=== PATIENT | male | born 1985 | race American Indian/Alaskan Native ===

== ENCOUNTER 2018-03-21 21:25 | Emergency (ER) | payer OTHER ==
[2018-03-21] MEDS ORDERED: KEPPRA 1,000 MG/NS 0.75% 100ML 1,000 MG/100 ML BAG IV ONE (22:02)
--- NOTE | 2018-03-21 22:23 | Emergency Department Report ---
ED Seizure HPI - General Chief Complaint: Seizure Stated Complaint: SEIZURE Time Seen by Provider: 03/21/18 22:04 Source: EMS Mode of arrival: Stretcher Limitations: Other - History of Present Illness Initial Comments: Patient is a 32 years old male with history of seizure he is on Keppra 750 mg twice a day. Patient presented to the ER after single episode of tonic-clonic seizure. Patient fell and hit his occipital part of his head and sustained a 2 cm laceration, bleeding controlled. Patient stated that he is compliant with his medication. Patient is complaining of headache but denied any weakness, numbness or tingling sensation. MD Complaint: seizure -: Sudden Description of Episode: loss of consciousness, tonic-clonic movement, post- event confusion Witnessed:: Yes Trauma: Yes (head injury with occipital laceration) Seizure History: known seizure disorder Place: home Possible Precipitating Event: none Associated Symptoms: denies other symptoms - Related Data Allergies Allergy/AdvReac Type Severity Reaction Status Date / Time No Known Allergies Allergy Verified 03/21/18 22:05 ED Review of Systems ROS: Stated complaint: SEIZURE Other details as noted in HPI Comment: All other systems reviewed and negative Constitutional: denies: chills, fever Cardiovascular: denies: chest pain, palpitations, dyspnea on exertion Gastrointestinal: denies: abdominal pain, nausea, vomiting Neurological: headache. denies: weakness ED Past Medical Hx - Past Medical History Previous Medical History?: Yes Hx Hypertension: Yes Hx Seizures: Yes - Surgical History Past Surgical History?: No - Social History Smoking Status: Light Tobacco Smoker Substance Use Type: None ED Physical Exam - General Limitations: No Limitations, Other General appearance: alert - Head Head exam: Present: other (2 cm laceration to occipital scalp) - Eye Eye exam: Present: normal appearance, PERRL - ENT ENT exam: Present: normal exam, normal orophraynx, mucous membranes moist - Neck Neck exam: Present: normal inspection, full ROM. Absent: tenderness, meningismus, lymphadenopathy, thyromegaly - Respiratory Respiratory exam: Present: normal lung sounds bilaterally - Cardiovascular Cardiovascular Exam: Present: regular rate, normal rhythm, normal heart sounds - GI/Abdominal GI/Abdominal exam: Present: soft, normal bowel sounds. Absent: distended, tenderness, guarding, rebound, rigid, organomegaly, mass, bruit, pulsatile mass , hernia - Extremities Exam Extremities exam: Present: normal inspection, full ROM, normal capillary refill - Back Exam Back exam: Present: normal inspection, full ROM. Absent: tenderness, CVA tenderness (R), CVA tenderness (L), muscle spasm, paraspinal tenderness, vertebral tenderness, rash noted - Neurological Exam Neurological exam: Present: alert, oriented X3, CN II-XII intact, normal gait, reflexes normal - Skin Skin exam: Present: warm, intact, normal color ED Course Vital Signs 03/21/18 03/21/18 21:55 23:45 Temperature 98.5 F Pulse Rate 76 Respiratory 16 20 Rate Blood Pressure 132/70 Blood Pressure 132/70 [Right] O2 Sat by Pulse 97 98 Oximetry - Laceration /Wound Repair Head Wound Location: head Wound's Depth, Shape: linear Wound Explored: no foreign body removed Betadine Prep?: Yes Wound Debrided: moderate Wound Repaired With: sutures (bridgette) Sterile Dressing Applied?: Yes ED Medical Decision Making - Lab Data Result diagrams: 03/21/18 22:14 03/21/18 22:14 - Radiology Data Radiology results: report reviewed Referring Physician: BARTOLO BUSH Patient Name: EVA MARIN Date of : 1985 Sex: Male Report Date: 2018-03-22 Report Status: [place] [address] Cat Scan Report Signed Patient: EVA MARIN MR#: [id number] : 1985 Acct:[id number] Age/Sex: 32 / M ADM Date: 03/21/18 Loc: ED Attending Dr: Ordering Physician: BARTOLO BUSH Date of Service: 03/21/18 Procedure(s): CT head/brain wo con Accession Number(s): [id number] cc: BARTOLO BUSH FINAL REPORT EXAM: CT HEAD/BRAIN WO CON HISTORY: headache, head injury TECHNIQUE: CT was performed from the foramen magnum through the vertex in the axial plane without the use of intravenous contrast. PRIORS: None. FINDINGS: The liu/white matter attenuation pattern is normal. There is no mass lesion or mass effect. There are no abnormal extra-axial fluid collections. There is no evidence of acute intracranial hemorrhage or infarct. The ventricles are of normal size and configuration. The skull and orbits are unremarkable. There is patchy mucosal thickening in the bilateral ethmoid air cells. IMPRESSION: Normal CT of the head. Transcribed By: RACQUEL Dictated By: DARREN GAMEZ MD Electronically Authenticated By: DARREN GAMEZ MD Signed Date/Time: 03/22/18149 DD/ 9 TD/TT: 03/22/18149 - Medical Decision Making Patient is 32 years old male with history of seizure. Patient presented to the ER complaining of one episode of seizure and he also sustained a head injury with a laceration to his occiput and approximately 2 cm. Patient stated that he is compliant with his medication. In the ER patient remained asymptomatic, he received 1 g of Keppra. Laceration repaired. CT head is negative for acute finding. I advised patient to follow-up with his neurologist in the next 2-3 days meanwhile number increase his Keppra to 1000 twice a day. I also advised the patient to return to the ER if his symptoms return. Critical care attestation.: If time is entered above; I have spent that time in minutes in the direct care of this critically ill patient, excluding procedure time. ED Disposition Clinical Impression: Seizure Disposition: DC-01 TO HOME OR SELFCARE Is pt being admited?: No Condition: Stable Instructions: Recurrent Seizures Adult (ED)
[2018-03-21] MEDS ORDERED: BOOSTRIX IM ONE (22:25)
[2018-03-21 22:48] LABS: Hematocrit 44.3 % (35.5-45.6); Mean Corpuscular HGB Conc 34 % (32-34); Mean Corpuscular Hemoglobin 30 pg (28-32); Mean Corpuscular Volume 89 fl (84-94); Platelet Count 203 K/mm3 (140-440); Red Blood Count 4.98 M/mm3 (3.65-5.03); Red Cell Distribution Width 14.4 % (13.2-15.2)
[2018-03-21 22:55] LABS: BUN/Creatinine Ratio 11; Blood Urea Nitrogen 12 mg/dL (9-20); Hemolysis Index 11
--- NOTE | 2018-03-22 01:57 | Cat Scan Report ---
FINAL REPORT EXAM: CT HEAD/BRAIN WO CON HISTORY: headache, head injury TECHNIQUE: CT was performed from the foramen magnum through the vertex in the axial plane without the use of intravenous contrast. PRIORS: None. FINDINGS: The liu/white matter attenuation pattern is normal. There is no mass lesion or mass effect. There are no abnormal extra-axial fluid collections. There is no evidence of acute intracranial hemorrhage or infarct. The ventricles are of normal size and configuration. The skull and orbits are unremarkable. There is patchy mucosal thickening in the bilateral ethmoid air cells. IMPRESSION: Normal CT of the head.
[2018-03-22 03:26] VITALS: BP 126/71
== END 2018-03-22 03:51 | disposition home or self-care (01) ==
LOC: ED 21:25
DX: S01.01XA Laceration without foreign body of scalp, initial encounter (principal); G40.909 Epilepsy, unspecified, not intractable, without status epilepticus; I10 Essential (primary) hypertension; Z72.0 Tobacco use; W18.09XA Striking against other object with subsequent fall, initial encounter; Y93.89 Activity, other specified; Y92.098 Other place in other non-institutional residence as the place of occurrence of the external cause; Y99.8 Other external cause status
CPT/HCPCS: 12001; 36415; 70450; 80048; 85027; 90471; 90715; 96365; 99284; J1953